=== PATIENT | female | born 1990 | race Two or more races ===

== ENCOUNTER 2017-06-14 20:16 | Emergency (ER) | payer MEDICAID ==
[~2017-06-14] VITALS: Ht 167.6 cm; Wt 81.6 kg
[2017-06-14 22:54] VITALS: BP 144/69
[2017-06-14] MEDS ORDERED: ONDANSETRON ODT 4 MG TAB PO ONE (23:45)
[2017-06-14] MEDS ORDERED: SODIUM CHLORIDE 0.9% 1,000 ML IV ONE (23:45)
== END 2017-06-15 00:53 | disposition home or self-care (01) ==
LOC: ER 20:16
DX: H81.10 Benign paroxysmal vertigo, unspecified ear (principal); Z88.0 Allergy status to penicillin; Z88.1 Allergy status to other antibiotic agents
CPT/HCPCS: 96360; 99284; J7030; Q0162

== ENCOUNTER 2021-06-03 11:36 | Inpatient (IN) | payer MEDICAID ==
[~2021-06-03] VITALS: Ht 170.2 cm; Wt 101.5 kg
[2021-06-03] MEDS ORDERED: LORazepam 2MG/ML-1ML VIAL IV ONE (12:15)
[2021-06-03 12:32] LABS: Basophils # (auto) 0.1 10 ^3/uL (0-0.2); Eosinophils # (auto) 0.2 10 ^3/uL (0-0.8); Eosinophils % (auto) 1.4 % (0.0-7.0); Hematocrit 38.2 % (36.0-46.0); Hemoglobin 12.1 g/dL (12.2-16.2); Lymphocytes # (auto) 2.9 10 ^3/uL (0.4-5.4); Lymphocytes % (auto) 23.1 % (10.0-50.0); Mean Corpuscular Hemoglobin 28.9 pg (28.0-32.0); Mean Corpuscular Hgb Conc. 31.6 g/dL (32.0-36.0); Mean Corpuscular Volume 91.4 fL (80.0-100.0); Monocytes # (auto) 0.9 10 ^3/uL (0-1.3); Monocytes % (auto) 7.3 % (0.0-12.0); Neutrophils # (auto) 8.5 10 ^3/uL (1.6-8.6); Neutrophils % (auto) 67.2 % (37.0-80.0); Nucleated Red Blood Cells % 0.1 %; Red Blood Cells 4.18 10^6/uL (4.0-5.20); Red Cell Distribution Width 15.2 % (11.8-14.3); White Blood Cell 12.6 10^3/uL (4.4-10.8)
[2021-06-03 12:47] LABS: Albumin 2.9 g/dL (3.4-5.0); Calcium 8.3 mg/dL (8.5-10.1); Potassium 4.3 mmol/L (3.5-5.1)
[2021-06-03 12:52] LABS: Bilirubin, Total 0.3 mg/dL (0.2-1.0); Total Protein 6.3 g/dL (6.4-8.2)
[2021-06-03] MEDS ORDERED: IOHEXOL 350 MG/ML 100ML IJ ONE (13:50)
[2021-06-03] MEDS ORDERED: levoFLOXacin 500MG 100 ML IV ONE ×2 (15:00→15:45)
[2021-06-03] MEDS ORDERED: FUROSEMIDE 40 MG/4 ML VIAL IV ONE (15:45)
[2021-06-03] MEDS ORDERED: POTASSIUM CHL 20 Meq TABLET PO ONE (15:45)
[2021-06-03] MEDS ORDERED: LISINOPRIL 10 MG TAB PO ONE (15:45)
[2021-06-03 21:05] LABS: Urine Bacteria FEW /hpf (None Seen); Urine Blood Negative /uL (Negative); Urine Mucus FEW (None Seen); Urine Specific Gravity 1.018 (1.001-1.035); Urine WBC 3 /hpf (0 - 5)
[2021-06-03 21:19] LABS: Alcohol, Urine < 3.0 mg/dL (0-10); Amphetamine Screen, Urine NEGATIVE (NEGATIVE); Barbiturate Scree,Urine NEGATIVE (NEGATIVE); Benzodiazephine Screen, Urine NEGATIVE (NEGATIVE); Cannabinoid Screen, Urine NEGATIVE (NEGATIVE); Cocaine Screen, Urine NEGATIVE (NEGATIVE); Opiate Scree,Urine NEGATIVE (NEGATIVE); Phencyclidine Screen, Urine NEGATIVE (NEGATIVE)
[2021-06-03] MEDS: CARVEDILOL 3.125 MG TAB PO SCH (22:49)
[2021-06-03 23:54] VITALS: BP 142/91
[2021-06-04] MEDS ORDERED: POM (00:07)
[2021-06-04] MEDS ORDERED: ALBU2TAB4 IN (00:07)
[2021-06-04] MEDS ORDERED: GABA300C10 PO (00:07)
[2021-06-04] MEDS ORDERED: CYCL-839 PO (00:07)
[2021-06-04] MEDS ORDERED: FLUO60TA7 PO (00:07)
[2021-06-04 02:34] LABS: Urine Bacteria NONE SEEN /hpf (None Seen); Urine Blood Negative /uL (Negative); Urine Specific Gravity 1.011 (1.001-1.035); Urine WBC 1 /hpf (0 - 5)
[2021-06-04 05:00] VITALS: BP 115/71
[2021-06-04 06:55] LABS: Basophils # (auto) 0.1 10 ^3/uL (0-0.2); Basophils % (auto) 1.1 % (0.0-2.0); Eosinophils # (auto) 0.3 10 ^3/uL (0-0.8); Eosinophils % (auto) 2.6 % (0.0-7.0); Hematocrit 35.1 % (36.0-46.0); Hemoglobin 11.8 g/dL (12.2-16.2); Lymphocytes # (auto) 3.9 10 ^3/uL (0.4-5.4); Lymphocytes % (auto) 37.2 % (10.0-50.0); Mean Corpuscular Hgb Conc. 33.5 g/dL (32.0-36.0); Mean Corpuscular Volume 89.4 fL (80.0-100.0); Monocytes # (auto) 0.8 10 ^3/uL (0-1.3); Monocytes % (auto) 7.1 % (0.0-12.0); Neutrophils # (auto) 5.5 10 ^3/uL (1.6-8.6); Nucleated Red Blood Cells % 0.2 %; Red Blood Cells 3.93 10^6/uL (4.0-5.20); Red Cell Distribution Width 15.2 % (11.8-14.3); White Blood Cell 10.6 10^3/uL (4.4-10.8)
[2021-06-04 07:18] LABS: Calcium 8.4 mg/dL (8.5-10.1); Potassium 4.9 mmol/L (3.5-5.1)
[2021-06-04 09:00] VITALS: BP 134/91
[2021-06-04] MEDS: ENOXAPARIN SOD 40 MG/0.4 ML SYRINGE SC SCH (10:18)
[2021-06-04] MEDS: MORPHINE SULFATE INJECTION 2 MG/ML SYRG IV PRN ×2 (10:18→17:09)
[2021-06-04] MEDS: LISINOPRIL 10 MG TAB PO SCH (10:19)
[2021-06-04] MEDS: POTASSIUM CHL 20 Meq TABLET PO SCH (10:19)
[2021-06-04] MEDS: FUROSEMIDE 40 MG/4 ML VIAL IV SCH (10:20)
[2021-06-04] MEDS: CARVEDILOL 3.125 MG TAB PO SCH ×2 (10:20→21:15)
[2021-06-04] MEDS: levoFLOXacin 500MG 100 ML IV SCH (10:20)
[2021-06-04 13:00] VITALS: BP 108/67
[2021-06-04 17:00] VITALS: BP 121/80
[2021-06-04] MEDS: ACETAMINOPHEN 500 MG TAB PO PRN (21:16)
[2021-06-04] MEDS: LORazepam 0.5 MG TAB PO PRN (21:16)
[2021-06-05 05:24] VITALS: BP 112/69
[2021-06-05] MEDS: LORazepam 0.5 MG TAB PO PRN (05:24)
[2021-06-05] MEDS: NITROGLYCERIN 0.4 MG SL TAB SL PRN ×3 (05:50→06:07)
[2021-06-05] MEDS: MORPHINE SULFATE INJECTION 2 MG/ML SYRG IV PRN ×3 (06:19→15:40)
[2021-06-05 09:00] VITALS: BP 135/92
[2021-06-05] MEDS: levoFLOXacin 500MG 100 ML IV SCH (09:17)
[2021-06-05] MEDS: CARVEDILOL 3.125 MG TAB PO SCH ×2 (09:17→23:08)
[2021-06-05] MEDS: POTASSIUM CHL 20 Meq TABLET PO SCH (09:18)
[2021-06-05] MEDS: LISINOPRIL 10 MG TAB PO SCH (09:19)
[2021-06-05] MEDS: ENOXAPARIN SOD 40 MG/0.4 ML SYRINGE SC SCH (09:19)
[2021-06-05] MEDS: FUROSEMIDE 40 MG/4 ML VIAL IV SCH (09:19)
[2021-06-05 13:00] VITALS: BP 123/83
[2021-06-05] MEDS: ALBUTEROL SULF 2.5 MG/0.5ML(0.5%) NEB SOLN NEB PRN ×2 (13:24→18:36)
[2021-06-05 17:00] VITALS: BP 120/89
[2021-06-05 20:00] VITALS: BP 126/94
[2021-06-06] MEDS: MORPHINE SULFATE INJECTION 2 MG/ML SYRG IV PRN ×4 (04:21→23:33)
[2021-06-06 05:00] VITALS: BP 129/72
[2021-06-06 08:00] VITALS: BP 126/94
[2021-06-06 09:00] VITALS: BP 120/77
[2021-06-06] MEDS: levoFLOXacin 500MG 100 ML IV SCH (09:08)
[2021-06-06] MEDS: CARVEDILOL 3.125 MG TAB PO SCH ×2 (09:09→22:08)
[2021-06-06] MEDS: POTASSIUM CHL 20 Meq TABLET PO SCH (09:09)
[2021-06-06] MEDS: ENOXAPARIN SOD 40 MG/0.4 ML SYRINGE SC SCH (09:10)
[2021-06-06] MEDS: LISINOPRIL 10 MG TAB PO SCH (09:10)
[2021-06-06] MEDS: FUROSEMIDE 40 MG/4 ML VIAL IV SCH (09:38)
[2021-06-06] MEDS: ALBUTEROL SULF 2.5 MG/0.5ML(0.5%) NEB SOLN NEB PRN ×2 (10:34→19:51)
[2021-06-06] MEDS ORDERED: ADENOSINE 84 MG in GIVE UN-DILUTED 0 ML IV STA (12:25)
[2021-06-06 12:36] VITALS: BP 122/68
[2021-06-06 16:43] VITALS: BP 122/84
[2021-06-06] MEDS: HYDROcodone-ACET 5/325MG TAB PO PRN (21:12)
[2021-06-06 22:00] VITALS: BP 119/75
[2021-06-07 05:00] VITALS: BP 126/90
[2021-06-07] MEDS: MORPHINE SULFATE INJECTION 2 MG/ML SYRG IV PRN ×2 (06:46→14:24)
[2021-06-07 07:17] LABS: Albumin 2.7 g/dL (3.4-5.0); Potassium 4.8 mmol/L (3.5-5.1)
[2021-06-07 07:21] LABS: BUN/Creatinine Ratio 35.1; Bilirubin, Total 0.2 mg/dL (0.2-1.0); Total Protein 5.8 g/dL (6.4-8.2)
[2021-06-07 09:00] VITALS: BP 129/84
[2021-06-07] MEDS: HYDROcodone-ACET 5/325MG TAB PO PRN ×3 (09:25→21:04)
[2021-06-07] MEDS: CARVEDILOL 3.125 MG TAB PO SCH ×2 (10:00→21:05)
[2021-06-07] MEDS: FUROSEMIDE 40 MG/4 ML VIAL IV SCH (10:00)
[2021-06-07] MEDS: LISINOPRIL 10 MG TAB PO SCH (10:00)
[2021-06-07] MEDS: levoFLOXacin 500MG 100 ML IV SCH (10:00)
[2021-06-07] MEDS: POTASSIUM CHL 20 Meq TABLET PO SCH (10:00)
[2021-06-07] MEDS: ENOXAPARIN SOD 40 MG/0.4 ML SYRINGE SC SCH (10:00)
[2021-06-07] MEDS: ALBUTEROL SULF 2.5 MG/0.5ML(0.5%) NEB SOLN NEB PRN ×2 (16:13→21:24)
[2021-06-07 22:08] VITALS: BP 118/82
[2021-06-08] MEDS: MORPHINE SULFATE INJECTION 2 MG/ML SYRG IV PRN ×4 (01:13→17:42)
[2021-06-08] MEDS: NITROGLYCERIN 0.4 MG SL TAB SL PRN (01:21)
[2021-06-08] MEDS: LORazepam 0.5 MG TAB PO PRN (01:29)
[2021-06-08] MEDS: guaiFENesin-DM 100/10mg/5ml SYR PO PRN ×2 (02:45→06:57)
[2021-06-08] MEDS: ALBUTEROL SULF 2.5 MG/0.5ML(0.5%) NEB SOLN NEB PRN ×2 (03:48→03:56)
[2021-06-08] MEDS: ACETAMINOPHEN 500 MG TAB PO PRN (04:21)
[2021-06-08 05:18] VITALS: BP 129/93
[2021-06-08] MEDS: ALBUTEROL SULF 2.5 MG/0.5ML(0.5%) NEB SOLN NEB SCH ×2 (06:05→18:40)
[2021-06-08 08:00] VITALS: BP 149/95
[2021-06-08 08:30] VITALS: BP 149/95
[2021-06-08] MEDS: levoFLOXacin 500MG 100 ML IV SCH (09:30)
[2021-06-08] MEDS: FUROSEMIDE 40 MG/4 ML VIAL IV SCH (09:30)
[2021-06-08] MEDS: LISINOPRIL 10 MG TAB PO SCH (09:31)
[2021-06-08] MEDS: POTASSIUM CHL 20 Meq TABLET PO SCH (09:31)
[2021-06-08] MEDS: CARVEDILOL 3.125 MG TAB PO SCH ×2 (09:31→22:09)
[2021-06-08] MEDS: ENOXAPARIN SOD 40 MG/0.4 ML SYRINGE SC SCH (09:32)
[2021-06-08 12:37] VITALS: BP 130/86
[2021-06-08 17:24] VITALS: BP 120/72
[2021-06-08] MEDS: HYDROcodone-ACET 5/325MG TAB PO PRN (20:31)
[2021-06-08 22:00] VITALS: BP 113/73
[2021-06-09 05:00] VITALS: BP 99/71
[2021-06-09] MEDS: ALBUTEROL SULF 2.5 MG/0.5ML(0.5%) NEB SOLN NEB SCH ×4 (05:51→19:22)
[2021-06-09] MEDS: MORPHINE SULFATE INJECTION 2 MG/ML SYRG IV PRN ×2 (07:30→14:44)
[2021-06-09 08:00] VITALS: BP 128/71
[2021-06-09 09:49] VITALS: BP 128/71
[2021-06-09] MEDS: FUROSEMIDE 40 MG/4 ML VIAL IV SCH (09:56)
[2021-06-09] MEDS: levoFLOXacin 500MG 100 ML IV SCH (09:56)
[2021-06-09] MEDS: LISINOPRIL 10 MG TAB PO SCH (09:57)
[2021-06-09] MEDS: ENOXAPARIN SOD 40 MG/0.4 ML SYRINGE SC SCH (09:57)
[2021-06-09] MEDS: CARVEDILOL 3.125 MG TAB PO SCH ×2 (09:57→21:11)
[2021-06-09] MEDS: POTASSIUM CHL 20 Meq TABLET PO SCH (09:57)
[2021-06-09] MEDS ORDERED: GABAPENTIN 300 MG CAP PO ONE (11:30)
[2021-06-09] MEDS: HYDROcodone-ACET 5/325MG TAB PO PRN ×2 (11:40→20:44)
[2021-06-09 12:34] VITALS: BP 110/59
[2021-06-09 16:29] VITALS: BP 104/68
[2021-06-09] MEDS: GABAPENTIN 300 MG CAP PO SCH (21:12)
[2021-06-09 21:14] VITALS: BP 103/66
[2021-06-10] MEDS: HYDROcodone-ACET 5/325MG TAB PO PRN ×2 (04:24→19:42)
[2021-06-10 05:01] VITALS: BP 119/79
[2021-06-10] MEDS: MORPHINE SULFATE INJECTION 2 MG/ML SYRG IV PRN ×3 (05:12→21:38)
[2021-06-10] MEDS: ALBUTEROL SULF 2.5 MG/0.5ML(0.5%) NEB SOLN NEB SCH ×6 (05:47→23:46)
[2021-06-10 08:00] VITALS: BP 105/76
[2021-06-10 09:00] VITALS: BP 105/76
[2021-06-10] MEDS: FUROSEMIDE 40 MG/4 ML VIAL IV SCH (09:28)
[2021-06-10] MEDS: ENOXAPARIN SOD 40 MG/0.4 ML SYRINGE SC SCH (09:29)
[2021-06-10] MEDS: levoFLOXacin 500MG 100 ML IV SCH (09:47)
[2021-06-10] MEDS: CARVEDILOL 3.125 MG TAB PO SCH ×2 (09:48→21:31)
[2021-06-10] MEDS: POTASSIUM CHL 20 Meq TABLET PO SCH (09:48)
[2021-06-10] MEDS: GABAPENTIN 300 MG CAP PO SCH ×2 (09:48→21:29)
[2021-06-10] MEDS: LISINOPRIL 10 MG TAB PO SCH (09:48)
[2021-06-10 11:43] LABS: Basophils # (auto) 0.1 10 ^3/uL (0-0.2); Basophils % (auto) 0.8 % (0.0-2.0); Eosinophils # (auto) 0.4 10 ^3/uL (0-0.8); Eosinophils % (auto) 4.4 % (0.0-7.0); Hematocrit 33.1 % (36.0-46.0); Hemoglobin 10.8 g/dL (12.2-16.2); Lymphocytes # (auto) 2.6 10 ^3/uL (0.4-5.4); Lymphocytes % (auto) 29.2 % (10.0-50.0); Mean Corpuscular Hemoglobin 29.4 pg (28.0-32.0); Mean Corpuscular Hgb Conc. 32.6 g/dL (32.0-36.0); Mean Corpuscular Volume 90.2 fL (80.0-100.0); Monocytes # (auto) 0.7 10 ^3/uL (0-1.3); Monocytes % (auto) 7.7 % (0.0-12.0); Neutrophils # (auto) 5.1 10 ^3/uL (1.6-8.6); Neutrophils % (auto) 57.9 % (37.0-80.0); Nucleated Red Blood Cells % 0.1 %; Red Blood Cells 3.66 10^6/uL (4.0-5.20); Red Cell Distribution Width 15.5 % (11.8-14.3); White Blood Cell 8.8 10^3/uL (4.4-10.8)
[2021-06-10 11:58] LABS: Partial Thromboplastin Time 25.2 sec (23.6-33.0)
[2021-06-10 12:02] LABS: BUN/Creatinine Ratio 23.5; Calcium 8.4 mg/dL (8.5-10.1); Potassium 4.6 mmol/L (3.5-5.1)
[2021-06-10 13:00] VITALS: BP 107/65
[2021-06-10] MEDS ORDERED: VANCOMYCIN HCL 1000 MG VL ONE (13:27)
[2021-06-10] MEDS ORDERED: fentaNYL CITRATE 100 MCG/2 ML VL ONE (13:27)
[2021-06-10] MEDS ORDERED: MIDAZOLAM HCL 2MG/2ML 2ml VIAL (1mg/ml) ONE (13:28)
[2021-06-10] MEDS ORDERED: VANCOMYCIN 1GM/250ML 250 ML IV ONE (13:28)
[2021-06-10] MEDS ORDERED: LIDOCAINE 2%HCL (LOCAL ANESTH.) INJ 20ML MDV ONE (13:41)
[2021-06-10 16:57] VITALS: BP 91/69
[2021-06-10] MEDS: VANCOMYCIN 1GM/250ML 250 ML IV SCH (21:24)
[2021-06-10 22:14] VITALS: BP 134/90
[2021-06-11] MEDS: HYDROcodone-ACET 5/325MG TAB PO PRN (04:22)
[2021-06-11 05:07] VITALS: BP 129/95
[2021-06-11] MEDS: MORPHINE SULFATE INJECTION 2 MG/ML SYRG IV PRN (05:09)
[2021-06-11] MEDS: ALBUTEROL SULF 2.5 MG/0.5ML(0.5%) NEB SOLN NEB SCH ×2 (07:19→11:44)
[2021-06-11 08:00] VITALS: BP 112/91
[2021-06-11] MEDS: FUROSEMIDE 40 MG/4 ML VIAL IV SCH (08:55)
[2021-06-11] MEDS: CARVEDILOL 3.125 MG TAB PO SCH (08:56)
[2021-06-11] MEDS: levoFLOXacin 500MG 100 ML IV SCH (08:56)
[2021-06-11] MEDS: GABAPENTIN 300 MG CAP PO SCH (08:57)
[2021-06-11] MEDS: LISINOPRIL 10 MG TAB PO SCH (08:57)
[2021-06-11] MEDS: POTASSIUM CHL 20 Meq TABLET PO SCH (08:57)
[2021-06-11] MEDS: ENOXAPARIN SOD 40 MG/0.4 ML SYRINGE SC SCH (08:58)
[2021-06-11 09:15] VITALS: BP 112/81
[2021-06-11] MEDS: VANCOMYCIN 1GM/250ML 250 ML IV SCH (10:22)
[2021-06-11] MEDS ORDERED: IBUP600T27 PO (10:55)
[2021-06-11 12:19] VITALS: BP 116/79
== END 2021-06-11 13:52 | disposition home or self-care (01) | DRG 179 ==
LOC: ER 11:36 → TELE 15:42 → TELE-CENTR 22:19
PROVIDERS: ADMIT Internal Medicine; ATTEND Family Medicine
PROC: 0JH608Z Insertion of Defibrillator Generator into Chest Subcutaneous Tissue and Fascia, Open Approach (ICD-10-PCS; principal; 2021-06-10)
PROC: 02H63KZ Insertion of Defibrillator Lead into Right Atrium, Percutaneous Approach (ICD-10-PCS; 2021-06-10)
PROC: 02HK3KZ Insertion of Defibrillator Lead into Right Ventricle, Percutaneous Approach (ICD-10-PCS; 2021-06-10)
DX: I50.41 Acute combined systolic (congestive) and diastolic (congestive) heart failure (principal); I27.29 Other secondary pulmonary hypertension; I42.9 Cardiomyopathy, unspecified; J18.9 Pneumonia, unspecified organism; F15.10 Other stimulant abuse, uncomplicated; F32.A Depression, unspecified; F41.9 Anxiety disorder, unspecified; J45.909 Unspecified asthma, uncomplicated; J98.11 Atelectasis; I08.1 Rheumatic disorders of both mitral and tricuspid valves; R74.8 Abnormal levels of other serum enzymes; M79.89 Other specified soft tissue disorders; R06.03 Acute respiratory distress; I50.82 Biventricular heart failure; Z20.822 Contact with and (suspected) exposure to COVID-19; Z80.9 Family history of malignant neoplasm, unspecified; Z83.3 Family history of diabetes mellitus; Z88.0 Allergy status to penicillin; Z88.1 Allergy status to other antibiotic agents; Z71.51 Drug abuse counseling and surveillance of drug abuser
CPT/HCPCS: 33249; 36415; 71045; 71275; 78452; 80048; 80053; 80307; 81001; 83605; 83880; 84484; 84550; 84702; 85025; 85379; 85610; 85730; 86850; 86900; 86901; 87040; 87081; 87426; 93005; 93017; 93306; 93970; 94640; 96365; 96366; 96375; 99152; 99153; 99291; G0378; J0153; J1956; J2250

== ENCOUNTER 2021-06-12 23:58 | Inpatient (IN) | payer MEDICAID, OTHER ==
[~2021-06-12] VITALS: Ht 167.6 cm; Wt 94.7 kg
[~2021-06-12 23:58] MED LIST: ALBU2TAB4 IN; CYCL-839 PO; FLUO60TA7 PO; GABA300C10 PO; IBUP600T27 PO; POM
[2021-06-13 02:10] LABS: Basophils # (auto) 0.1 10 ^3/uL (0-0.2); Basophils % (auto) 0.9 % (0.0-2.0); Eosinophils # (auto) 0.2 10 ^3/uL (0-0.8); Eosinophils % (auto) 1.6 % (0.0-7.0); Hematocrit 36.6 % (36.0-46.0); Hemoglobin 12.2 g/dL (12.2-16.2); Lymphocytes # (auto) 2.9 10 ^3/uL (0.4-5.4); Lymphocytes % (auto) 25.6 % (10.0-50.0); Mean Corpuscular Hemoglobin 29.5 pg (28.0-32.0); Mean Corpuscular Hgb Conc. 33.3 g/dL (32.0-36.0); Mean Corpuscular Volume 88.7 fL (80.0-100.0); Monocytes # (auto) 0.8 10 ^3/uL (0-1.3); Neutrophils # (auto) 7.5 10 ^3/uL (1.6-8.6); Neutrophils % (auto) 64.9 % (37.0-80.0); Red Blood Cells 4.12 10^6/uL (4.0-5.20); Red Cell Distribution Width 14.9 % (11.8-14.3); White Blood Cell 11.5 10^3/uL (4.4-10.8)
[2021-06-13 02:46] LABS: Albumin 3.1 g/dL (3.4-5.0); Calcium 8.7 mg/dL (8.5-10.1); Magnesium 2.6 mg/dL (1.6-2.6); Potassium 4.3 mmol/L (3.5-5.1)
[2021-06-13 02:52] LABS: BUN/Creatinine Ratio 24.2; Bilirubin, Total 0.5 mg/dL (0.2-1.0); Total Protein 6.9 g/dL (6.4-8.2)
[2021-06-13] MEDS ORDERED: KETOROLAC TROMETH 30 MG/ML 1ML VIAL IV ONE ×2 (06:15→13:30)
[2021-06-13] MEDS ORDERED: IOHEXOL 350 MG/ML 100ML IJ ONE (08:43)
[2021-06-13] MEDS ORDERED: ONDANSETRON HCL 4 MG/2 ML VIAL IV PRN (15:30)
[2021-06-13] MEDS ORDERED: NITROGLYCERIN 0.4 MG SL TAB SL PRN (15:30)
[2021-06-13] MEDS ORDERED: IBUPROFEN 600 MG TAB PO PRN (16:00)
[2021-06-13] MEDS ORDERED: ALBUTEROL SULF 2.5 MG/0.5ML(0.5%) NEB SOLN NEB ONE (16:00)
[2021-06-13] MEDS ORDERED: ALBUTEROL SULF 2.5 MG/0.5ML(0.5%) NEB SOLN NEB PRN (16:15)
[2021-06-13 17:51] VITALS: BP 138/92
[2021-06-13 21:00] VITALS: BP 147/109
[2021-06-13] MEDS: GABAPENTIN 300 MG CAP PO SCH (21:20)
[2021-06-13] MEDS: MORPHINE SULFATE INJECTION 2 MG/ML SYRG IV PRN (21:20)
[2021-06-13] MEDS ORDERED: CYCLOBENZAPRINE HCL 10 MG TAB PO ONE (22:00)
[2021-06-14] MEDS: MORPHINE SULFATE INJECTION 2 MG/ML SYRG IV PRN ×2 (03:05→05:50)
[2021-06-14 05:35] LABS: Basophils # (auto) 0.1 10 ^3/uL (0-0.2); Basophils % (auto) 1.1 % (0.0-2.0); Eosinophils # (auto) 0.1 10 ^3/uL (0-0.8); Eosinophils % (auto) 1.4 % (0.0-7.0); Hematocrit 36.3 % (36.0-46.0); Hemoglobin 11.9 g/dL (12.2-16.2); Lymphocytes % (auto) 29.2 % (10.0-50.0); Mean Corpuscular Hgb Conc. 32.7 g/dL (32.0-36.0); Mean Corpuscular Volume 88.5 fL (80.0-100.0); Monocytes # (auto) 0.7 10 ^3/uL (0-1.3); Monocytes % (auto) 6.7 % (0.0-12.0); Neutrophils # (auto) 6.3 10 ^3/uL (1.6-8.6); Neutrophils % (auto) 61.6 % (37.0-80.0); Nucleated Red Blood Cells % 0.1 %; Red Cell Distribution Width 15.6 % (11.8-14.3); White Blood Cell 10.3 10^3/uL (4.4-10.8)
[2021-06-14 05:48] VITALS: BP 139/92
[2021-06-14 06:00] LABS: Potassium 4.9 mmol/L (3.5-5.1)
[2021-06-14 06:04] LABS: Albumin 3.2 g/dL (3.4-5.0); BUN/Creatinine Ratio 24.7; Calcium 9.3 mg/dL (8.5-10.1)
[2021-06-14 06:06] LABS: Bilirubin, Total 0.9 mg/dL (0.2-1.0); Total Protein 6.6 g/dL (6.4-8.2)
[2021-06-14 09:00] VITALS: BP 128/93
[2021-06-14] MEDS ORDERED: FLUoxetine HCL 20 MG CAP PO ONE (10:00)
[2021-06-14] MEDS: GABAPENTIN 300 MG CAP PO SCH ×2 (10:00→21:46)
[2021-06-14] MEDS: ENOXAPARIN SOD 40 MG/0.4 ML SYRINGE SC SCH (10:00)
[2021-06-14] MEDS ORDERED: POTASSIUM CHL 20 Meq TABLET PO ONE (12:15)
[2021-06-14] MEDS ORDERED: CARVEDILOL 3.125 MG TAB PO ONE (12:15)
[2021-06-14] MEDS ORDERED: FUROSEMIDE 40 MG/4 ML VIAL IV ONE (12:15)
[2021-06-14] MEDS ORDERED: LISINOPRIL 10 MG TAB PO ONE (12:15)
[2021-06-14 17:00] VITALS: BP 117/69
[2021-06-14] MEDS: CARVEDILOL 3.125 MG TAB PO SCH (21:46)
[2021-06-14 22:04] VITALS: BP 123/68
[2021-06-15] VITALS (8 sets, daily range): BP systolic 106–123; BP diastolic 59–98
[2021-06-15] MEDS: MORPHINE SULFATE INJECTION 2 MG/ML SYRG IV PRN ×3 (05:13→21:56)
[2021-06-15] MEDS: LISINOPRIL 10 MG TAB PO SCH (10:00)
[2021-06-15] MEDS: FUROSEMIDE 40 MG/4 ML VIAL IV SCH (10:00)
[2021-06-15] MEDS: POTASSIUM CHL 20 Meq TABLET PO SCH (10:00)
[2021-06-15] MEDS: ENOXAPARIN SOD 40 MG/0.4 ML SYRINGE SC SCH (10:00)
[2021-06-15] MEDS: GABAPENTIN 300 MG CAP PO SCH ×2 (10:00→21:53)
[2021-06-15] MEDS: CARVEDILOL 3.125 MG TAB PO SCH ×2 (10:00→21:53)
[2021-06-15 11:13] LABS: Albumin 2.7 g/dL (3.4-5.0); BUN/Creatinine Ratio 30.8; Calcium 8.6 mg/dL (8.5-10.1); Potassium 4.6 mmol/L (3.5-5.1)
[2021-06-15 11:16] LABS: Bilirubin, Total 0.6 mg/dL (0.2-1.0); Total Protein 6.3 g/dL (6.4-8.2)
[2021-06-15 16:50] LABS: Urine Bacteria NONE SEEN /hpf (None Seen); Urine Blood Negative /uL (Negative); Urine Mucus FEW (None Seen); Urine Specific Gravity 1.023 (1.001-1.035); Urine WBC 2 /hpf (0 - 5)
[2021-06-16 05:00] VITALS: BP 124/73
[2021-06-16 09:19] VITALS: BP 113/69
[2021-06-16] MEDS: FUROSEMIDE 40 MG/4 ML VIAL IV SCH (10:00)
[2021-06-16] MEDS: LISINOPRIL 10 MG TAB PO SCH (10:00)
[2021-06-16] MEDS: CARVEDILOL 3.125 MG TAB PO SCH ×2 (10:00→21:25)
[2021-06-16] MEDS: ENOXAPARIN SOD 40 MG/0.4 ML SYRINGE SC SCH (10:00)
[2021-06-16] MEDS: GABAPENTIN 300 MG CAP PO SCH ×2 (10:00→21:25)
[2021-06-16] MEDS: POTASSIUM CHL 20 Meq TABLET PO SCH (10:00)
[2021-06-16 12:25] VITALS: BP 126/72
[2021-06-16 17:30] VITALS: BP 138/87
[2021-06-16] MEDS: MORPHINE SULFATE INJECTION 2 MG/ML SYRG IV PRN ×2 (21:26)
[2021-06-16 22:00] VITALS: BP 122/84
[2021-06-17] MEDS: MORPHINE SULFATE INJECTION 2 MG/ML SYRG IV PRN ×3 (02:28→12:45)
[2021-06-17 05:09] VITALS: BP 121/72
[2021-06-17 08:00] LABS: Albumin 2.8 g/dL (3.4-5.0); Calcium 8.2 mg/dL (8.5-10.1); Potassium 4.9 mmol/L (3.5-5.1)
[2021-06-17 08:03] LABS: BUN/Creatinine Ratio 24.1; Bilirubin, Total 0.4 mg/dL (0.2-1.0); Total Protein 6.1 g/dL (6.4-8.2)
[2021-06-17 09:00] VITALS: BP 108/64
[2021-06-17] MEDS: LISINOPRIL 10 MG TAB PO SCH (10:00)
[2021-06-17] MEDS: ENOXAPARIN SOD 40 MG/0.4 ML SYRINGE SC SCH (10:00)
[2021-06-17] MEDS: POTASSIUM CHL 20 Meq TABLET PO SCH (10:00)
[2021-06-17] MEDS: FUROSEMIDE 40 MG/4 ML VIAL IV SCH (10:00)
[2021-06-17] MEDS: CARVEDILOL 3.125 MG TAB PO SCH (10:00)
[2021-06-17] MEDS: GABAPENTIN 300 MG CAP PO SCH (10:00)
[2021-06-17 13:00] VITALS: BP 124/85
[2021-06-17 13:15] VITALS: BP 124/68
== END 2021-06-17 15:33 | disposition home or self-care (01) | DRG 194 ==
LOC: ER 23:58 → EDBD 23:58 → EDUNIT# 23:58 → TELE 06-13 15:21 → TELE-WESTW 06-13 17:47
PROVIDERS: ADMIT Internal Medicine; ATTEND Internal Medicine
DX: I11.0 Hypertensive heart disease with heart failure (principal); K76.1 Chronic passive congestion of liver; E66.9 Obesity, unspecified; I50.21 Acute systolic (congestive) heart failure; F15.90 Other stimulant use, unspecified, uncomplicated; F41.9 Anxiety disorder, unspecified; J45.909 Unspecified asthma, uncomplicated; Z20.822 Contact with and (suspected) exposure to COVID-19; R09.1 Pleurisy; Z91.19 Patient's noncompliance with other medical treatment and regimen; Z79.899 Other long term (current) drug therapy; Z95.810 Presence of automatic (implantable) cardiac defibrillator; M19.90 Unspecified osteoarthritis, unspecified site; Z68.28 Body mass index [BMI] 28.0-28.9, adult; Z88.1 Allergy status to other antibiotic agents; Z88.0 Allergy status to penicillin; Z88.8 Allergy status to other drugs, medicaments and biological substances
CPT/HCPCS: 36415; 71045; 71275; 80053; 81001; 83605; 83735; 83880; 84484; 85025; 85379; 87040; 87081; 87426; 93005; 94640; 96374; 96376; G0378; J1885; J2405